=== PATIENT | female | born 1975 | race Caucasian/White ===

== ENCOUNTER 2017-07-31 04:21 | Emergency (ER) | payer BC | END 2017-07-31 05:29 | disposition home or self-care (01) | LOC: D.ER 04:21 | DX: M50.20 Other cervical disc displacement, unspecified cervical region (principal); F17.200 Nicotine dependence, unspecified, uncomplicated; E05.90 Thyrotoxicosis, unspecified without thyrotoxic crisis or storm ==

== ENCOUNTER → 2017-08-13 16:01 | Outpatient (CLI) | payer BC ==
[2017-08-13 16:44] LABS: INR 0.88 (0.85-1.17); PROTIME 11.5 SECONDS (11.6-15.0)
[2017-08-13 16:50] LABS: HEMATOCRIT 39.2 % (36.0-48.0); HEMOGLOBIN 13.3 g/dL (12-16); WBC 13.8 10x3/uL (4.8-10.8)
[2017-08-13 16:52] LABS: CREATININE - SERUM 0.6 mg/dL (0.6-1.3)
[2017-08-13 17:06] LABS: APPEARANCE CLEAR (CLEAR); BILIRUBIN NEGATIVE (NEGATIVE); COLOR YELLOW (YELLOW); GLUCOSE NEGATIVE (NEGATIVE); KETONE NEGATIVE (NEGATIVE); NITRITE NEGATIVE (NEGATIVE); PROTEIN NEGATIVE (NEGATIVE); SPECIFIC GRAVITY 1.015 (1.005-1.020); UROBILINOGEN NORMAL (NORMAL)
[2017-08-13 17:07] LABS: EPITHELIAL CELLS OCC /hpf (0-5); WHITE CELLS - URINE 0-5 /hpf (0-5)
[2017-08-13 17:08] LABS: BACTERIA FEW /hpf (NONE SEEN)
== END | disposition home or self-care (01) ==
LOC: D.RT 16:01
PROVIDERS: Specialist
DX: Z01.812 Encounter for preprocedural laboratory examination (principal); I10 Essential (primary) hypertension

== ENCOUNTER → 2017-08-23 16:08 | Outpatient (CLI) | payer BC | END | disposition home or self-care (01) | LOC: D.LAB 16:08 | DX: Z01.812 Encounter for preprocedural laboratory examination (principal); I10 Essential (primary) hypertension ==